=== PATIENT | female | born 1980 | race Caucasian/White ===

== ENCOUNTER 2017-01-11 10:56 | Inpatient (IN) | payer MEDICAID ==
[~2017-01-11] VITALS: Ht 154.9 cm; Wt 79.8 kg
[2017-01-11] VITALS (8 sets, daily range): BP systolic 117–138; BP diastolic 74–99
[2017-01-11] MEDS ORDERED: NORT10CA PO (10:59)
[2017-01-11] MEDS ORDERED: ALBU2SYR PO (10:59)
[2017-01-11] MEDS ORDERED: ESCI5TAB PO (11:20)
[2017-01-11] MEDS ORDERED: KETOROLAC 30MG/ML VIAL IV STA (11:25)
[2017-01-11] MEDS ORDERED: SODIUM CHLORIDE 0.9% 1,000 ML IV ONE (11:25)
[2017-01-11 11:46] LABS: BASOPHILS % 0.4 % (0.0-2.0); EOSINOPHILS % 1.8 % (0.0-5.0); HEMATOCRIT. 37.5 % (36.0-48.0); HEMOGLOBIN. 12.9 g/dL (12.0-16.0); LYMPHOCYTES % 27.9 % (20.0-50.0); MEAN CORPUSCULAR HEMOGLOBIN 30.3 pg (28.0-32.0); MEAN CORPUSCULAR VOLUME 88.3 fL (81.0-99.0); MEAN PLATELET VOLUME 8.3 fl (7.4-10.4); NEUTROPHILS % 63.9 % (40.0-76.0); PLATELET 260 x1000/uL (130-400); RED BLOOD CELL COUNT 4.24 mill/uL (4.2-5.4); RED CELL DISTRIBUTION WIDTH 12.7 % (11.6-14.6)
[2017-01-11 11:51] LABS: PARTIAL THROMBOPLASTIN TIME 24.1 sec (23.4-31.0); PROTHROMBIN TIME 10.1 sec (9.4-11.6)
[2017-01-11 11:52] LABS: HCG SCREEN NEGATIVE
[2017-01-11 11:59] LABS: CARBON DIOXIDE 26 mEq/L (21-32); CHLORIDE 106 mEq/L (98-107); CREATINE KINASE 78 IU/L (26-192); TROPONIN I < 0.02 ng/mL (0.00-0.04)
[2017-01-11 12:05] LABS: CREATINE KINASE MB FRACTION < 0.5 ng/mL (0.5-3.6)
[2017-01-11] MEDS ORDERED: ASPIRIN 81MG TABLET PO ONE (12:45)
[2017-01-11] MEDS ORDERED: LORAZEPAM 1MG TABLET PO PRN (15:45)
[2017-01-11] MEDS ORDERED: CLONIDINE 0.1MG TABLET PO PRN (15:45)
[2017-01-11] MEDS ORDERED: ACETAMINOPHEN 325MG TABLET PO PRN (15:45)
[2017-01-11] MEDS ORDERED: DOCUSATE SODIUM 100MG CAPSULE PO PRN (15:45)
[2017-01-11] MEDS ORDERED: ONDANSETRON HCL 4MG/2ML VIAL IV PRN (15:45)
[2017-01-11] MEDS: ENOXAPARIN 40MG/0.4ML SYR SUBCUT SCH (17:09)
[2017-01-11] MEDS: HYDROCODONE/ACETAMINOPHEN 5/325MG TABLET PO PRN (20:10)
[2017-01-11] MEDS: NORTRIPTYLINE HCL 10MG CAPSULE PO SCH (21:12)
[2017-01-11 22:59] LABS: CREATINE KINASE 80 IU/L (26-192); TROPONIN I < 0.02 ng/mL (0.00-0.04)
[2017-01-11 23:00] LABS: CREATINE KINASE MB FRACTION < 0.5 ng/mL (0.5-3.6)
[2017-01-12] VITALS (10 sets, daily range): BP systolic 103–122; BP diastolic 51–79
[2017-01-12] MEDS ORDERED: OMEPRAZOLE 20MG CAPSULE EXTENDED RELEASE PO SCH (06:50)
[2017-01-12 06:59] LABS: BASOPHILS % 0.3 % (0.0-2.0); EOSINOPHILS % 2.5 % (0.0-5.0); HEMATOCRIT. 34.5 % (36.0-48.0); HEMOGLOBIN. 12.1 g/dL (12.0-16.0); LYMPHOCYTES % 42.9 % (20.0-50.0); MEAN CORPUSCULAR HEMOGLOBIN 30.7 pg (28.0-32.0); MEAN CORPUSCULAR VOLUME 87.3 fL (81.0-99.0); MEAN PLATELET VOLUME 7.8 fl (7.4-10.4); NEUTROPHILS % 45.3 % (40.0-76.0); PLATELET 228 x1000/uL (130-400); RED BLOOD CELL COUNT 3.95 mill/uL (4.2-5.4); RED CELL DISTRIBUTION WIDTH 12.7 % (11.6-14.6)
[2017-01-12 07:30] LABS: CARBON DIOXIDE 25 mEq/L (21-32); CHLORIDE 106 mEq/L (98-107); CREATINE KINASE 75 IU/L (26-192); HDL CHOLESTEROL 46 mg/dL (40-59); LDL CHOLESTEROL 63 mg/dL (5-100); T4 FREE 0.93 ng/dL (0.76-1.46); TROPONIN I < 0.02 ng/mL (0.00-0.04)
[2017-01-12] MEDS ORDERED: ASPIRIN 81MG EC TABLET PO SCH (09:00)
[2017-01-12] MEDS: HYDROCODONE/ACETAMINOPHEN 5/325MG TABLET PO PRN (10:53)
[2017-01-12] MEDS ORDERED: CITALOPRAM HYDROBROMIDE 40MG TABLET PO SCH (13:00)
[2017-01-12] MEDS ORDERED: SENN-22 PO (13:23)
[2017-01-12] MEDS: ENOXAPARIN 40MG/0.4ML SYR SUBCUT SCH (14:16)
[2017-01-12] MEDS: NORTRIPTYLINE HCL 10MG CAPSULE PO SCH (20:38)
[2017-01-12] MEDS ORDERED: SENNOSIDES/DOCUSATE SOD 8.6/50MG TABLET PO SCH (21:00)
[2017-01-13] MEDS ORDERED: CITALOPRAM HYDROBROMIDE 40MG TABLET PO SCH (09:00)
[2017-01-13] MEDS ORDERED: NON FORMULARY PATIENT HOME MED EA PO SCH (09:00)
== END 2017-01-12 22:20 | disposition short-term general hospital (02) | DRG 203 ==
LOC: ER 10:58 → ENRESERV 11:52 → 3WST 12:43 → EDBEDREQTM 12:45 → EDBEDREQ 12:45 → 6WST 01-12 10:05
PROVIDERS: ADMIT Hospitalist; ATTEND Hospitalist
DX: M94.0 Chondrocostal junction syndrome [Tietze] (principal); I10 Essential (primary) hypertension; F32.9 Major depressive disorder, single episode, unspecified; J45.909 Unspecified asthma, uncomplicated; M79.7 Fibromyalgia; K58.9 Irritable bowel syndrome, unspecified; F41.9 Anxiety disorder, unspecified; R42 Dizziness and giddiness
CPT/HCPCS: 36415; 70450; 71010; 72125; 80053; 80061; 82550; 82553; 83690; 83880; 84439; 84443; 84484; 84703; 85025; 85610; 85730; 93005; 93970; 96361; 96374; 99291; J1650; J1885; J7030